=== PATIENT | male | born 1985 | race Caucasian/White ===

== ENCOUNTER 2018-09-14 16:47 | Inpatient (IN) | payer MEDICAID, OTHER ==
[2018-09-14 16:47] VITALS: BMI 25.1
[2018-09-14] MEDS ORDERED: Sodium Chloride 0.9% 1,000 ML IV ONE (18:09)
[2018-09-14] MEDS ORDERED: Morphine 4 MG/ML VIAL ONE (18:27)
[2018-09-14] MEDS ORDERED: Sodium Chloride 0.9% 1,000 ML ONE (18:27)
--- NOTE | 2018-09-14 18:32 | C.PDOC ---
History Of Present Illness 33 y/o male with a PMHx of kidney stones s/p stent at [facility] [place], presents for evaluation of left flank pain and hematuria for the last few days. Patient states symptoms worsened today. He called his urologist and was instructed to come here. Patient otherwise denies any fever, chills, nausea, vomiting, or other associated symptoms. Time Seen by Provider: 09/14/18 18:02 Chief Complaint (Nursing): Male Genitourinary History Per: Patient History/Exam Limitations: no limitations Onset/Duration Of Symptoms: Days Current Symptoms Are (Timing): Worse Quality Of Discomfort: "Pain" Alleviating Factors: None Past Medical History Reviewed: Historical Data, Nursing Documentation, Vital Signs Vital Signs: Last Vital Signs Temp 98 F 09/14/18 17:22 Pulse 89 09/14/18 17:22 Resp 20 09/14/18 17:22 BP 110/71 09/14/18 17:22 Pulse Ox 100 09/14/18 17:22 - Medical History PMH: Hypercholesterolemia, Kidney Stones, Chronic Kidney Disease Denies: Depression Other Surgeries: Stent - [facility] Procedures ESOPHAGOGASTRODUODENOSCOPY [EGD] W/CLOSED BIOPSY (08/22/14) INJECT/INFUSE ELECTROLYT (04/30/13) INJECT/INFUSE NEC (04/30/13) Family History: States: No Known Family Hx - Social History Hx Tobacco Use: No Hx Alcohol Use: No Hx Substance Use: No - Immunization History Hx Tetanus Toxoid Vaccination: Yes Hx Influenza Vaccination: Yes Hx Pneumococcal Vaccination: Yes Review Of Systems Except As Marked, All Systems Reviewed And Found Negative. Constitutional: Negative for: Fever, Chills Gastrointestinal: Negative for: Nausea, Vomiting, Diarrhea Genitourinary: Positive for: Hematuria. Negative for: Dysuria, Frequency, I ncontinence Musculoskeletal: Positive for: Back Pain (Left flank pain) Skin: Negative for: Rash Physical Exam - Physical Exam Appears: Non-toxic, No Acute Distress Skin: Warm, Dry Head: Atraumatic, Normacephalic Eye(s): bilateral: Normal Inspection, PERRL, EOMI Oral Mucosa: Moist Neck: Normal ROM Cardiovascular: Rhythm Regular, No Murmur Respiratory: Normal Breath Sounds, No Rales, No Rhonchi, No Wheezing Gastrointestinal/Abdominal: Soft, No Tenderness, No Distention, No Guarding Back: No Vertebral Tenderness, Other (+ mild left flank tenderness) Extremity: Bilateral: Atraumatic, Normal Color And Temperature Neurological/Psych: Oriented x3, Normal Speech ED Course And Treatment - Laboratory Results Result Diagrams: 09/14/18 18:29 09/14/18 18:29 ECG: Interpreted By Me, Viewed By Me ECG Rhythm: Sinus Rhythm Interpretation Of ECG: no ST or T wave changes Rate From EC O2 Sat by Pulse Oximetry: 100 (RA) Pulse Ox Interpretation: Normal - Other Rad Abd X-Ray X-Ray: Read By Radiologist Interpretation: Accession No. : [id number]. Patient Name / ID : ELENA MURDOCK / [id number]. Exam Date : 09/14/2018 18:15:41 ( Approved ). Study Comment : Sex / Age : M / 33Y. Creator : Varsha Tracy MD. Dictator : Varsha Tracy MD. Boat Diesel Motor Mechanic : Audio Visual Engineer : Varsha Tracy MD. Approver2 : Report Date : 09/14/2018 18:57:26. My Comment : . Date of service: 09/14/2018. HISTORY: abd pain s/p stent. COMPARISON: None available. FINDINGS: BOWEL: Nonobstructive bowel gas pattern. Moderate constipation. No definite free air. BONES: No acute osseous abnormality is detected. OTHER FINDINGS: Left ureteral stent. 5 mm calcification adjacent to the proximal aspect of the stent, favored to represent a left lower pole renal calculus and less likely debris within overlying bowel. IMPRESSION: Left ureteral stent. 5 mm calcification adjacent to the proximal aspect of the stent, favored to represent a left lower pole renal calculus and less likely debris within overlying bowel. Moderate constipation. - CT Scan/US CT Abd/Pelvis Other Rad Studies (CT/US): Read By Radiologist CT/US Interpretation: Name:MATHIEU PARKER Exam Date:Sep 14, 2018 7:21:13 PM EST. Modality Type:CT\\SR. Description:CT - ABDOMEN AND PELVIS WITH CORONAL AND SAGITTAL MPRS. Gender:M Laterality:Not applicable. :85 Referring Physician:Matt Alan (DO). EXAM: CT Abdomen without IV contrast. CLINICAL HISTORY: Left flank pain/h/o stent. TECHNIQUE: Axial computed tomography images of the abdomen and pelvis without intravenous contrast. DLP not provided. CONTRAST: Without. COMPARISON: None provided. FINDINGS: LUNG BASES: The lung bases appear clear. No pleural effusions are seen. LIVER: Unremarkable. GALLBLADDER AND BILE DUCTS: The gallbladder appears within normal limits. No radioopaque gallstones are seen. No biliary ductal dilatation is evident. PANCREAS: Unremarkable. SPLEEN: Unremarkable. ADRENAL GLANDS: Unremarkable. KIDNEYS, URETERS, AND BLADDER: There is a 3 mm stone within the lower pole of the left kidney. Left ureteral stent is in place. There is no hydronephrosis or hydroureter. No urinary calculi are seen. STOMACH AND BOWEL: Unremarkable appearance of the stomach and bowel. No evidence of bowel obstruction. No eviden ce suggesting enteritis or colitis. APPENDIX: No evidence of acute appendicitis on CT examination. PERITONEUM: No free fluid. No free air. LYMPH NODES: No lymphadenopathy is evident. VASCULATURE: No evidence of abdominal aortic aneurysm. BONES: No aggressive appearing osseous lesion. No acute osseous pathology evident. IMPRESSION: 3 mm nonobstructing stone in the lower pole of the left kidney. Left ureteral stent is in place. No additional abnormalities. Medical Decision Making Medical Decision Making: Impression: Left flank pain, hx of kidney stones ro pos top complication Plan: --EKG --CT Abd/Pelvis --Flu swab --Blood work --Blood type/screen --UA --Urine culture --Abdominal x-ray --IV fluids --4 mg IV Morphine --Reassess Labs and imaging reviewed. Discussed with pt's urologist Dr. Susan Cash request npo Patient accepted for admission under Dr. Sammi Caraballo, who assumed care as of 19:51 Disposition - Disposition Disposition: HOSPITALIZED Disposition Time: 20:00 Condition: STABLE Forms: [employer] (Romansh) - Clinical Impression Clinical Impression: Renal stone, Post-operative pain - Scribe Statement The provider has reviewed the documentation as recorded by the Scribe (Naya Green) Provider Attestation: All medical record entries made by the Scribe were at my direction and personally dictated by me. I have reviewed the chart and agree that the record accurately reflects my personal performance of the history, physical exam, medical decision making, and the department course for this patient. I have also personally directed, reviewed, and agree with the discharge instructions and disposition.
[2018-09-14 18:35] LABS: BASO # 0.1 K/uL (0.0-0.2); BASO % 1.1 % (0.0-2.0); EOS # 0.3 K/uL (0.0-0.7); EOS % 3.8 % (0.0-4.0); HEMOGLOBIN 14.3 g/dL (12.0-18.0); LYMPH # 3.2 K/uL (1.0-4.3); LYMPH % 46.8 % (20.0-40.0); MEAN CELL VOLUME 88.7 fL (80.0-94.0); MEAN CORPUSCULAR HEMOGLOBIN 30.9 pg (27.0-31.0); MEAN CORPUSCULAR HGB CONC 34.8 g/dL (33.0-37.0); MONO # 0.6 K/uL (0.0-0.8); MONO % 8.1 % (0.0-10.0); NEUT # 2.8 K/uL (1.8-7.0); NEUT % 40.2 % (50.0-75.0); NRBC % 0.1 % (0.0-2.0); RBC 4.62 Mil/uL (4.40-5.90); RED CELL DISTRIBUTION WIDTH 13.2 % (11.5-14.5); WHITE BLOOD COUNT 6.9 K/uL (4.8-10.8)
[2018-09-14 18:42] LABS: URINE BACTERIA RARE (<OCC); URINE BILIRUBIN NEGATIVE (NEGATIVE); URINE BLOOD 3+ (NEGATIVE); URINE CLARITY Hazy (Clear); URINE COLOR AMBER (YELLOW); URINE GLUCOSE (UA) NORMAL (Normal); URINE LEUKOCYTE ESTERASE 1+ Leu/uL (Negative); URINE PROTEIN 1+ mg/dL (NEGATIVE); URINE UROBILINOGEN NORMAL mg/dL (0.2-1.0)
[2018-09-14 18:47] LABS: INR 1.1; PROTHROMBIN TIME 11.5 SECONDS (9.7-12.2)
[2018-09-14 18:48] LABS: ALB/GLOB RATIO 1.5 (1.0-2.1); ALBUMIN 4.3 g/dL (3.5-5.0); ALT/SGPT 34 U/L (21-72); AST/SGOT 30 U/L (17-59); BLOOD UREA NITROGEN 12 mg/dL (9-20); CALCIUM 9.3 mg/dl (8.6-10.4); GFR NON-AFRICAN AMERICAN > 60; LIPASE 91 U/L (23-300)
--- NOTE | 2018-09-14 19:01 | RAD ---
Date of service: 09/14/2018 HISTORY: abd pain s/p stent COMPARISON: None available. FINDINGS: BOWEL: Nonobstructive bowel gas pattern. Moderate constipation. No definite free air. BONES: No acute osseous abnormality is detected. OTHER FINDINGS: Left ureteral stent. 5 mm calcification adjacent to the proximal aspect of the stent, favored to represent a left lower pole renal calculus and less likely debris within overlying bowel. IMPRESSION: Left ureteral stent. 5 mm calcification adjacent to the proximal aspect of the stent, favored to represent a left lower pole renal calculus and less likely debris within overlying bowel. Moderate constipation.
[2018-09-14] MEDS: Ciprofloxacin 400mg/200ml D5W 400 MG/200 ML BAG IVPB SCH (22:34)
--- NOTE | 2018-09-14 23:11 | CP.PCM.HP ---
Past Patient History - Infectious Disease Hx of Infectious Diseases: None - Tetanus Immunizations Tetanus Immunization: Unknown - Past Medical History & Family History Past Medical History?: Yes - Past Social History Smoking Status: Current Some Days Smoker - CARDIAC Hx Hypercholesterolemia: Yes - PULMONARY Hx Respiratory Disorders: No - NEUROLOGICAL Hx Neurological Disorder: No - HEENT Hx HEENT Problems: No - RENAL Hx Chronic Kidney Disease: Yes Hx Kidney Stones: Yes - ENDOCRINE/METABOLIC Hx Endocrine Disorders: No - HEMATOLOGICAL/ONCOLOGICAL Hx Blood Disorders: No - INTEGUMENTARY Hx Dermatological Problems: No - MUSCULOSKELETAL/RHEUMATOLOGICAL Hx Falls: No - GASTROINTESTINAL Hx Gastrointestinal Disorders: Yes Hx Gastroesophageal Reflux: Yes - GENITOURINARY/GYNECOLOGICAL Hx Genitourinary Disorders: Yes Other/Comment: hx of kidney stones - PSYCHIATRIC Hx Depression: No Hx Sexual Abuse: No Hx Substance Use: No - SURGICAL HISTORY Hx Surgeries: Yes Other/Comment: urethral stent left side placed by dr sukhdev bhat at [facility] [place] on 09/09/18 - ANESTHESIA Hx Anesthesia: Yes Hx Anesthesia Reactions: No Hx Malignant Hyperthermia: No Has any member of the family had a problem w/ anesthesia?: No Meds Allergies/Adverse Reactions: Allergies Allergy/AdvReac Type Severity Reaction Status Date / Time No Known Allergies Allergy Verified 03/29/17 21:03 Results - Vital Signs Recent Vital Signs: Last Vital Signs Temp 98.3 F 09/14/18 21:12 Pulse 82 09/14/18 21:12 Resp 18 09/14/18 21:12 BP 144/85 09/14/18 21:12 Pulse Ox 98 09/14/18 21:12 - Labs Result Diagrams: 09/14/18 18:29 09/14/18 18:29 Labs: Laboratory Results - last 24 hr 09/14/18 09/14/18 09/14/18 18:29 18:29 18:29 WBC 6.9 RBC 4.62 Hgb 14.3 Hct 41.0 MCV 88.7 MCH 30.9 MCHC 34.8 RDW 13.2 Plt Count 254 MPV 9.0 Neut % (Auto) 40.2 L Lymph % (Auto) 46.8 H Hayes % (Auto) 8.1 Eos % (Auto) 3.8 Baso % (Auto) 1.1 Neut # (Auto) 2.8 Lymph # (Auto) 3.2 Hayes # (Auto) 0.6 Eos # (Auto) 0.3 Baso # (Auto) 0.1 PT 11.5 INR 1.1 APTT 35 H Sodium Potassium Chloride Carbon Dioxide Anion Gap BUN Creatinine Est GFR ( Amer) Est GFR (Non-Af Amer) Random Glucose Calcium Total Bilirubin AST ALT Alkaline Phosphatase Total Protein Albumin Globulin Albumin/Globulin Ratio Lipase Urine Color Sully Urine Clarity Hazy Urine pH 5.0 Ur Specific [place] 1.011 Urine Protein 1+ H Urine Glucose (UA) Normal Urine Ketones Negative Urine Blood 3+ H Urine Nitrate Negative Urine Bilirubin Negative Urine Urobilinogen Normal Ur Leukocyte Esterase 1+ H Urine WBC (Auto) 15 H Urine RBC (Auto) 3339 H Urine Bacteria Rare Blood Type Antibody Screen 09/14/18 09/14/18 18:29 19:13 WBC RBC Hgb Hct MCV MCH MCHC RDW Plt Count MPV Neut % (Auto) Lymph % (Auto) Hayes % (Auto) Eos % (Auto) Baso % (Auto) Neut # (Auto) Lymph # (Auto) Hayes # (Auto) Eos # (Auto) Baso # (Auto) PT INR APTT Sodium 141 Potassium 4.0 Chloride 104 Carbon Dioxide 26 Anion Gap 15 BUN 12 Creatinine 0.7 L Est GFR ( Amer) > 60 Est GFR (Non-Af Amer) > 60 Random Glucose 100 Calcium 9.3 Total Bilirubin 0.3 AST 30 ALT 34 Alkaline Phosphatase 65 Total Protein 7.2 Albumin 4.3 Globulin 2.9 Albumin/Globulin Ratio 1.5 Lipase 91 Urine Color Urine Clarity Urine pH Ur Specific Pickrell Urine Protein Urine Glucose (UA) Urine Ketones Urine Blood Urine Nitrate Urine Bilirubin Urine Urobilinogen Ur Leukocyte Esterase Urine WBC (Auto) Urine RBC (Auto) Urine Bacteria Blood Type AB POSITIVE Antibody Screen Negative
[2018-09-15] MEDS: Ciprofloxacin 400mg/200ml D5W 400 MG/200 ML BAG IVPB SCH ×2 (11:00→21:44)
--- NOTE | 2018-09-15 11:04 | CT ---
PROCEDURE: CT Abdomen and Pelvis without Oral or IV contrast. HISTORY: left stent, left flank pain COMPARISON: Abdominal radiographs performed 09/14/18 TECHNIQUE: Contiguous axial images of the abdomen and pelvis. No oral or IV contrast administered. Coronal and Sagittal reformats generated and reviewed. Radiation dose: Total exam DLP = 844.09 mGy-cm. This CT exam was performed using one or more of the following dose reduction techniques: Automated exposure control, adjustment of the mA and/or kV according to patient size, and/or use of iterative reconstruction technique. FINDINGS: There is limited evaluation of the solid organs without the administration of IV contrast. LOWER THORAX: No visible consolidation, pleural effusion, or pneumothorax. Small hiatal hernia/distal esophageal wall thickening. LIVER: Hepatomegaly. GALLBLADDER AND BILE DUCTS: Unremarkable unenhanced appearance. PANCREAS: Unremarkable unenhanced appearance. SPLEEN: 9 mm probable splenule. Otherwise unremarkable unenhanced appearance. ADRENALS: Unremarkable unenhanced appearance. KIDNEYS AND URETERS: Left ureteral stent. Mild inflammatory changes within the left abdomen along the mid to distal ureteral stent coarse 3 mm calculus, left lower pole kidney. No hydronephrosis bilaterally. BLADDER: The urinary bladder appears unremarkable. REPRODUCTIVE: Prostate gland measures approximately 2.9 x 3.6 cm. APPENDIX: The appendix appears within normal limits of caliber. No secondary signs of acute appendicitis. BOWEL: The stomach is nondistended. Lack of oral contrast limits evaluation for bowel pathology. The bowel loops appear within normal limits of caliber without evidence of intestinal obstruction. PERITONEUM: No significant free fluid. No definite free air. LYMPH NODES: No bulky lymphadenopathy identified. VASCULATURE: No atherosclerotic calcifications of the aorta present. No aortic aneurysm. BONES: No acute osseous abnormality is detected. OTHER FINDINGS: None. IMPRESSION: Left ureteral stent. Mild inflammatory changes within the left abdomen along the mid to distal ureteral stent coarse presumably due to recent instrumentation; correlate clinically. 3 mm calculus, left lower pole kidney. Hepatomegaly. Preliminary impression was provided by [facility]. Study marked for PA review.
--- NOTE | 2018-09-15 12:29 | CARD ---
APPROVED REPORT Date of service: 09/14/2018 EKG Measurement Heart [id number] <Conclusion> Normal sinus rhythm Normal ECG
--- NOTE | 2018-09-15 14:44 | CP.PCM.PN ---
Subjective - Date & Time of Evaluation Date of Evaluation: 09/15/18 Time of Evaluation: 08:30 - Subjective Subjective: clinically same Objective - Vital Signs/Intake and Output Vital Signs (last 24 hours): Temp Pulse Resp BP Pulse Ox 98.7 F 71 20 112/77 96 09/15/18 07:56 09/15/18 07:56 09/15/18 07:56 09/15/18 07:56 09/15/18 07:56 Intake and Output: 09/15/18 09/15/18 06:59 18:59 Intake Total 400 Output Total 400 Balance 0 - Medications Medications: Current Medications Ciprofloxacin (Cipro 400mg/200ml Dsw) 400 mg in 200 mls @ 133 mls/hr IVPB Q12H MIREYA; Protocol Last Admin: 09/15/18 11:00 Dose: 133 mls/hr Ketorolac Tromethamine (Toradol) 30 mg IVP Q8 PRN PRN Reason: pain Last Admin: 09/15/18 11:58 Dose: 30 mg Pantoprazole Sodium (Protonix Inj) 40 mg IVP DAILY MIREYA Last Admin: 09/15/18 11:50 Dose: 40 mg Pneumococcal Polyvalent Vaccine (Pneumovax 23 Vaccine) 0.5 ml IM .ONCE ONE Stop: 09/16/18 10:01 - Labs Labs: 09/14/18 18:29 09/14/18 18:29 PT 11.5 SECONDS (9.7-12.2) 09/14/18 18:29 INR 1.1 09/14/18 18:29 APTT 35 SECONDS (21-34) H 09/14/18 18:29 - Constitutional Appears: Well - Head Exam Head Exam: ATRAUMATIC, NORMAL INSPECTION, NORMOCEPHALIC - Eye Exam Eye Exam: EOMI, Normal appearance, PERRL Pupil Exam: NORMAL ACCOMODATION, PERRL - ENT Exam ENT Exam: Mucous Membranes Moist, Normal Exam - Neck Exam Neck Exam: Full ROM, Normal Inspection. absent: Lymphadenopathy - Respiratory Exam Respiratory Exam: Decreased Breath Sounds - Cardiovascular Exam Cardiovascular Exam: REGULAR RHYTHM, +S1, +S2 - GI/Abdominal Exam GI & Abdominal Exam: Soft, Diminished Bowel Sounds - Rectal Exam Rectal Exam: Deferred
--- NOTE | 2018-09-15 15:45 | CP.PCM.CON ---
Past Patient History - Infectious Disease Hx of Infectious Diseases: None - Tetanus Immunizations Tetanus Immunization: Unknown - Past Medical History & Family History Past Medical History?: Yes - Past Social History Smoking Status: Current Some Days Smoker - CARDIAC Hx Hypercholesterolemia: Yes - PULMONARY Hx Respiratory Disorders: No - NEUROLOGICAL Hx Neurological Disorder: No - HEENT Hx HEENT Problems: No - RENAL Hx Chronic Kidney Disease: Yes Hx Kidney Stones: Yes - ENDOCRINE/METABOLIC Hx Endocrine Disorders: No - HEMATOLOGICAL/ONCOLOGICAL Hx Blood Disorders: No - INTEGUMENTARY Hx Dermatological Problems: No - MUSCULOSKELETAL/RHEUMATOLOGICAL Hx Falls: No - GASTROINTESTINAL Hx Gastrointestinal Disorders: Yes Hx Gastroesophageal Reflux: Yes - GENITOURINARY/GYNECOLOGICAL Hx Genitourinary Disorders: Yes Other/Comment: hx of kidney stones - PSYCHIATRIC Hx Depression: No Hx Sexual Abuse: No Hx Substance Use: No - SURGICAL HISTORY Hx Surgeries: Yes Other/Comment: urethral stent left side placed by dr sukhdev bhat at [facility] [place] on 09/09/18 - ANESTHESIA Hx Anesthesia: Yes Hx Anesthesia Reactions: No Hx Malignant Hyperthermia: No Has any member of the family had a problem w/ anesthesia?: No Meds Allergies/Adverse Reactions: Allergies Allergy/AdvReac Type Severity Reaction Status Date / Time No Known Allergies Allergy Verified 03/29/17 21:03 - Medications Medications: Current Medications Ciprofloxacin (Cipro 400mg/200ml Dsw) 400 mg in 200 mls @ 133 mls/hr IVPB Q12H MIREYA; Protocol Last Admin: 09/15/18 11:00 Dose: 133 mls/hr Ketorolac Tromethamine (Toradol) 30 mg IVP Q8 PRN PRN Reason: pain Last Admin: 09/15/18 11:58 Dose: 30 mg Pantoprazole Sodium (Protonix Inj) 40 mg IVP DAILY [facility] Last Admin: 09/15/18 11:50 Dose: 40 mg Pneumococcal Polyvalent Vaccine (Pneumovax 23 Vaccine) 0.5 ml IM .ONCE ONE Stop: 09/16/18 10:01 Results - Vital Signs Recent Vital Signs: Last Vital Signs Temp 98.7 F 09/15/18 07:56 Pulse 71 09/15/18 07:56 Resp 20 09/15/18 07:56 BP 112/77 09/15/18 07:56 Pulse Ox 96 09/15/18 07:56 - Labs Result Diagrams: 09/14/18 18:29 09/14/18 18:29 Labs: Laboratory Results - last 24 hr 09/14/18 09/14/18 09/14/18 18:29 18:29 18:29 WBC 6.9 RBC 4.62 Hgb 14.3 Hct 41.0 MCV 88.7 MCH 30.9 MCHC 34.8 RDW 13.2 Plt Count 254 MPV 9.0 Neut % (Auto) 40.2 L Lymph % (Auto) 46.8 H Winston % (Auto) 8.1 Eos % (Auto) 3.8 Baso % (Auto) 1.1 Neut # (Auto) 2.8 Lymph # (Auto) 3.2 Winston # (Auto) 0.6 Eos # (Auto) 0.3 Baso # (Auto) 0.1 PT 11.5 INR 1.1 APTT 35 H Sodium Potassium Chloride Carbon Dioxide Anion Gap BUN Creatinine Est GFR ( Amer) Est GFR (Non-Af Amer) Random Glucose Calcium Total Bilirubin AST ALT Alkaline Phosphatase Total Protein Albumin Globulin Albumin/Globulin Ratio Lipase Urine Color Sully Urine Clarity Hazy Urine pH 5.0 Ur Specific [place] 1.011 Urine Protein 1+ H Urine Glucose (UA) Normal Urine Ketones Negative Urine Blood 3+ H Urine Nitrate Negative Urine Bilirubin Negative Urine Urobilinogen Normal Ur Leukocyte Esterase 1+ H Urine WBC (Auto) 15 H Urine RBC (Auto) 3339 H Urine Bacteria Rare Blood Type Antibody Screen 09/14/18 09/14/18 18:29 19:13 WBC RBC Hgb Hct MCV MCH MCHC RDW Plt Count MPV Neut % (Auto) Lymph % (Auto) Winston % (Auto) Eos % (Auto) Baso % (Auto) Neut # (Auto) Lymph # (Auto) Winston # (Auto) Eos # (Auto) Baso # (Auto) PT INR APTT Sodium 141 Potassium 4.0 Chloride 104 Carbon Dioxide 26 Anion Gap 15 BUN 12 Creatinine 0.7 L Est GFR ( Amer) > 60 Est GFR (Non-Af Amer) > 60 Random Glucose 100 Calcium 9.3 Total Bilirubin 0.3 AST 30 ALT 34 Alkaline Phosphatase 65 Total Protein 7.2 Albumin 4.3 Globulin 2.9 Albumin/Globulin Ratio 1.5 Lipase 91 Urine Color Urine Clarity Urine pH Ur Specific [place]elly Urine Protein Urine Glucose (UA) Urine Ketones Urine Blood Urine Nitrate Urine Bilirubin Urine Urobilinogen Ur Leukocyte Esterase Urine WBC (Auto) Urine RBC (Auto) Urine Bacteria Blood Type AB POSITIVE Antibody Screen Negative Assessment & Plan - Assessment and Plan (Free Text) Assessment: IMP: Urolithiasis L ureteral stent in place Thank you. YS - Date & Time Date: 09/15/18 Time: 15:15
[2018-09-15] MEDS ORDERED: Midazolam 2 MG/2 ML VIAL ONE (17:05)
[2018-09-15] MEDS ORDERED: Propofol 10 mg/ml Inj (20 ML) ONE ×3 (17:05→18:14)
[2018-09-15] MEDS ORDERED: Iohexol 240 (50 ml) ONE (17:24)
[2018-09-15] MEDS ORDERED: cefTRIAXone 1 gm 1 GM/100 ML BAG IVPB ONE (17:24)
[2018-09-15] MEDS ORDERED: Neostigmine Methylsulfate 3mg/3ml Syringe IV ONE (17:33)
[2018-09-15] MEDS ORDERED: Rocuronium 10 mg/ml (10 ml) ONE (17:33)
--- NOTE | 2018-09-15 18:17 | PCM.SURG1 ---
Surgeon's Initial Post Op Note - Surgeon's Notes Surgeon: Jose Garcia Solar Lab Technician: [email or web address] Type of Anesthesia: General Endo Pre-Operative Diagnosis: L renal calculus Operative Findings: same Post-Operative Diagnosis: same Operation Performed: cysto. L ureterorenoscopy. Laser renolithotripsy. RTG pyelogram. Stent insertion Specimen/Specimens Removed: urine Estimated Blood Loss: EBL {In ML}: 0 Blood Products Given: N/A Post-Op Condition: Good Date of Surgery/Procedure: 09/15/18 Time of Surgery/Procedure: 18:16
[2018-09-15] MEDS ORDERED: Lactated Ringer's 1,000 ML IV ONE ×2 (18:31)
[2018-09-15] MEDS ORDERED: HYDROmorphone 0.5 mg/0.5 ml ISec IVP PRN (18:35)
[2018-09-15] MEDS: HYDROmorphone 0.5 mg/0.5 ml ISec IVP PRN ×4 (18:40→19:11)
[2018-09-15 20:52] VITALS: RESP 20
--- NOTE | 2018-09-16 04:57 | OP ---
PROCEDURE DATE: 09/15/2018 PREOPERATIVE DIAGNOSES: 1. History of left renal colic. 2. Left renal calculus. POSTOPERATIVE DIAGNOSES: 1. History of left renal colic. 2. Left renal calculus. PROCEDURES: 1. Cystoscopy. 2. Left ureterorenoscopy. 3. Left renal ureteral lithotripsy. 4. Left retrograde pyelogram. 5. Insertion of left ureteral stent. OPERATING SURGEON: Susan Garcia MD Procedure was performed under video endoscopic control as well as under fluoroscopic control. DESCRIPTION OF PROCEDURE: As follows: Perioperative antibiotics had been administered. The patient was placed in lithotomy position. General anesthesia was provided by the Anesthesiologist. A 22-Panamanian cystoscope sheath was introduced under direct vision. Urethra, prostate, and bladder were inspected. FINDINGS: There was no stricture in the anterior urethra. There was evidence of trilobar prostatic hypertrophy, which was occlusive. There was moderate inflammation of the bladder. The left ureteral stent was identified and grasped with rigid grasping forceps and brought to the level of the distal end of cystoscope sheath. A 0.035-inch guidewire was inserted into the ureteral stent and passed up to the level of the kidney. The stent was removed. The fluoroscopy revealed a rounded 6 mm stone adjacent to the stent. A second guidewire was inserted into the ureter with the use of a 10-Panamanian double-lumen ureteral catheter. The 6-Panamanian flexible ureteroscope was passed over the working wire through the cystoscope sheath, into the ureter. The ureteroscope was passed under direct vision as well as fluoroscopic control. The ureteroscope was passed up to the level of the kidney into the renal pelvis. Ureterorenoscopy was performed. Multiple calyces were inspected. The stone was identified in the left main posterior calyx. Laser ureteral lithotripsy was performed with the 20 micron fiber and the holmium laser. Lithotripsy was performed in dusting mode. There was noted to be excellent fragmentation as well as dusting. The stone fragmented into innumerable fragments. Stone was yellow-brown in color and had an irregular bumpy surface. Following completion of the lithotripsy, further calyces were inspected including the upper and lower poles. There were no other stones noted. Iodinated contrast dye was instilled through the ureteroscope to identify the renal collecting system anatomy. The ureteroscope was removed under direct vision. There was no trauma to the ureter. The cystoscope was backloaded into the cystoscope sheath over the working wire. A 4.7-Panamanian multi-length stent was inserted over the working wire. Proper stent position was confirmed with fluoroscopy and endoscopy. The guidewire was removed, stent was left in place. A distal suture was left to exit per urethra from the stent. The cystoscope and sheath were removed. The suture was secured to the penis. The patient was returned to the supine position. Prostate examination had been performed. There was no abnormal pelvic mass fixation or induration. The patient tolerated the procedure without complication. Susan Garcia MD
--- NOTE | 2018-09-16 07:47 | CON ---
DATE: 09/15/2018 UROLOGY CONSULTATION REQUESTED BY: Jon Caraballo MD. UROLOGY CONSULTATION FILLED BY: Susan Garcia MD REASON FOR CONSULTATION: Urolithiasis. Renal colic. HISTORY OF PRESENT ILLNESS: The patient is a 33-year-old male with urolithiasis. The patient has abdominal pain and flank pain. The patient has had several trips over the past week to the emergency room. The patient was found to have renal colic last week. The patient underwent cystoscopy and stent insertion for a 5-mm left upper ureteral stone with associated severe persistent pain. On 09/09/2018, the patient had cystoscopy, left ureteral stone manipulation, insertion of left ureteral stent. The patient has history of previous urolithiasis. He reports about 4 to 5 episodes over the past several years. He reports that he always had passed the stone and they were all 2 mm or less in size. The patient is, otherwise, well. No recent fever or rigors. The patient has had intermittent hematuria. The patient has had severe abdominal pain and flank pain. He also has had dysuria. The pain has persisted despite oral medications. The patient has required parenteral analgesics. PHYSICAL EXAMINATION: GENERAL: Patient is well-developed, well-nourished middle-aged male,appeared in distress. ABDOMEN: Soft. Mild suprapubic tenderness. Mild left flank tenderness. GENITALIA: Without inflammation. LABORATORY DATA: Reviewed. CAT scan and abdominal x-ray reviewed as well. Findings on x-ray, the left ureteral stent is in proper position. There is a 6 mm stone in the left renal collecting system lateral to the renal pelvis. The stone was seen on PA and oblique views as well as on the CAT scan. IMPRESSION: History of left renal colic, now with pain. Pain is probably related to the stent, both at the bladder level as well as at the kidney level. Left renal stones noted. RECOMMENDATIONS AND PLANS: I have reviewed the findings with the patient. I reviewed the options of therapy with the patient including extracorporeal shockwave lithotripsy as well as possible ureteroscopy and laser lithotripsy. I recommended extracorporeal shockwave lithotripsy as the less invasive procedure. However, the patient insisted on cystoscopy and urethral renoscopy despite its more invasive nature, due to the presence of his pain. Plan for cysto today. Nature of the procedure including risks, benefits, and alternatives have been explained to the patient as well. Plan for cysto and ureteroscopy. Perioperative antibiotics. Anesthesia anesthesia. Further therapy to follow according to the patient's clinical course as well as results of above. Thank you for recommending patient for urology consultation. Susan Garcia MD cc: Jon Caraballo MD
[2018-09-16 07:49] VITALS: BP 135/87; PULSE 78; TEMP 98.6; O2SAT 95
[2018-09-16] MEDS ORDERED: Pneumococcal 23-Valent Vaccine IM ONE (10:00)
--- NOTE | 2018-09-16 10:08 | RAD ---
PROCEDURE: HISTORY: As above COMPARISON: None TECHNIQUE: Total fluoroscopic time, continuous utilized during the procedure: 96.3 seconds ; 1.50 mGy cm 2 FINDINGS: Submitted images from the current procedure: 12 Please refer to the physician's notes performing the procedure. IMPRESSION: Less than 1 hour fluoroscopic time utilized during performance of the procedure
[2018-09-16] MEDS: Ciprofloxacin 400mg/200ml D5W 400 MG/200 ML BAG IVPB SCH (11:29)
--- NOTE | 2018-09-16 14:49 | CP.PCM.PN ---
Subjective - Date & Time of Evaluation Date of Evaluation: 09/16/18 Time of Evaluation: 14:49 - Subjective Subjective: alert, oriented, ambulatory, NAD. Objective - Vital Signs/Intake and Output Vital Signs (last 24 hours): Temp Pulse Resp BP Pulse Ox 98.6 F 78 20 135/87 95 09/16/18 07:46 09/16/18 07:46 09/16/18 07:46 09/16/18 07:46 09/16/18 07:46 Intake and Output: 09/16/18 09/16/18 06:59 18:59 Intake Total 700 Output Total 1700 Balance -1000 - Medications Medications: Current Medications Ciprofloxacin (Cipro 400mg/200ml Dsw) 400 mg in 200 mls @ 133 mls/hr IVPB Q12H [facility]; Protocol Last Admin: 09/16/18 11:29 Dose: 133 mls/hr Ketorolac Tromethamine (Toradol) 30 mg IVP Q8 PRN PRN Reason: pain Last Admin: 09/16/18 09:21 Dose: 30 mg Pantoprazole Sodium (Protonix Inj) 40 mg IVP DAILY MIREYA Last Admin: 09/16/18 09:21 Dose: 40 mg Tamsulosin HCl (Flomax) 0.4 mg PO DAILY MIREYA Last Admin: 09/16/18 09:23 Dose: 0.4 mg - Labs Labs: 09/14/18 18:29 09/14/18 18:29 PT 11.5 SECONDS (9.7-12.2) 09/14/18 18:29 INR 1.1 09/14/18 18:29 APTT 35 SECONDS (21-34) H 09/14/18 18:29 Assessment and Plan - Assessment and Plan (Free Text) Assessment: 33year old male , s/p cystoscopy and ureteral stent placed yesterday, seen and examined. Alert and orientedx3, denies acute pain or bleeding. Would like to be discharged today. Discussed with DR Jose Garcia and DR Sammi Caraballo, plan to discharge home on levaquin, flomax and pain meds as needed. Advised to follow up with DR Verna morton in the office on Thursday for stent removal. Advised no heavy lifting, increase oral fluids and strain all the urine and if any stone bring to the office.
--- NOTE | 2018-09-16 19:26 | PN ---
DATE: 09/16/2018 SUBJECTIVE: See previous notes. The patient presented with severe renal colic, he is now feeling better and he is postop, he had a ureteroscopy, see the previous notes from Dr. Susan Garcia. From a urology standpoint, he is currently resting comfortably, he has resumed his diet. He is actually going to likely be discharge home. It is up to the care of Dr. Caraballo from urology standpoint. I explained to the patient, stent care and stent and he will followup with Dr. Susan Garcia, I have given him the office phone number and will make a recommendation for followup. Marquez Garcia MD
== END 2018-09-16 16:26 | disposition home or self-care (01) | DRG 443 ==
LOC: C.ER 16:47 → C.3T 19:51
PROVIDERS: ADMIT Internal Medicine Nephrology; ATTEND Internal Medicine Nephrology
PROC: 0TP98DZ Removal of Intraluminal Device from Ureter, Via Natural or Artificial Opening Endoscopic (ICD-10-PCS; 2018-09-15)
PROC: 0T778DZ Dilation of Left Ureter with Intraluminal Device, Via Natural or Artificial Opening Endoscopic (ICD-10-PCS; 2018-09-15)
PROC: 0TC78ZZ Extirpation of Matter from Left Ureter, Via Natural or Artificial Opening Endoscopic (ICD-10-PCS; principal; 2018-09-15 16:45)
DX: N20.2 Calculus of kidney with calculus of ureter (principal); T83.84XA Pain due to genitourinary prosthetic devices, implants and grafts, initial encounter; N30.91 Cystitis, unspecified with hematuria; N18.9 Chronic kidney disease, unspecified; N40.0 Benign prostatic hyperplasia without lower urinary tract symptoms; Z96.0 Presence of urogenital implants; K59.00 Constipation, unspecified; K21.9 Gastro-esophageal reflux disease without esophagitis; E78.00 Pure hypercholesterolemia, unspecified; Z87.442 Personal history of urinary calculi; Z72.0 Tobacco use